=== PATIENT | male | born 1975 | race Two or more races ===

== ENCOUNTER 2018-02-01 09:09 | Emergency (ER) | payer SELFPAY ==
[~2018-02-01] VITALS: Ht 175.3 cm; Wt 127.0 kg
[2018-02-01 09:13] VITALS: BP 154/106
[2018-02-01] MEDS ORDERED: ALPRAZolam 0.5 MG TAB PO ONE (10:00)
[2018-02-01 10:56] LABS: Amphetamine Screen, Urine POSITIVE (NEGATIVE); Barbiturate Scree,Urine NEGATIVE (NEGATIVE); Benzodiazephine Screen, Urine NEGATIVE (NEGATIVE); Cannabinoid Screen, Urine NEGATIVE (NEGATIVE); Cocaine Screen, Urine NEGATIVE (NEGATIVE); Opiate Scree,Urine NEGATIVE (NEGATIVE); Phencyclidine Screen, Urine NEGATIVE (NEGATIVE)
== END 2018-02-01 10:08 | disposition home or self-care (01) ==
LOC: EDBD 09:09 → ER 09:09
DX: F41.9 Anxiety disorder, unspecified (principal); F32.9 Major depressive disorder, single episode, unspecified; I25.2 Old myocardial infarction
CPT/HCPCS: 80307

== ENCOUNTER 2018-06-04 03:37 | Emergency (ER) | payer BC, MEDICAID ==
[~2018-06-04] VITALS: Ht 175.3 cm; Wt 120.2 kg
[2018-06-04] MEDS ORDERED: LORazepam 0.5 MG TAB PO ONE (06:00)
[2018-06-04] MEDS ORDERED: HYDROcodone-ACET 7.5/325MG TAB PO ONE (06:45)
[2018-06-04 15:46] LABS: Amphetamine Screen, Urine POSITIVE (NEGATIVE); Barbiturate Scree,Urine NEGATIVE (NEGATIVE); Cannabinoid Screen, Urine NEGATIVE (NEGATIVE); Cocaine Screen, Urine NEGATIVE (NEGATIVE); Opiate Scree,Urine NEGATIVE (NEGATIVE); Phencyclidine Screen, Urine NEGATIVE (NEGATIVE)
[2018-06-04 16:17] LABS: Benzodiazephine Screen, Urine POSITIVE (NEGATIVE)
[2018-06-04 19:47] LABS: Basophils # (auto) 0.1 uL; Basophils % (auto) 0.5 % (0.0-2.0); Eosinophils # (auto) 0.1 uL; Eosinophils % (auto) 1.2 % (0.0-7.0); Hematocrit 39.2 % (41.0-53.0); Hemoglobin 13.6 g/dL (13.5-17.5); Lymphocytes # (auto) 2.5 uL; Lymphocytes % (auto) 23.3 % (10.0-50.0); Mean Corpuscular Hgb Conc. 34.6 g/dL (32.0-36.0); Mean Corpuscular Volume 89.6 fL (80.0-100.0); Monocytes % (auto) 9.8 % (0.0-12.0); Neutrophils % (auto) 65.2 % (37.0-80.0); Platelet Count (auto) 341 10^3/uL (140-450); Red Blood Cells 4.37 10^6/uL (4.5-5.90); White Blood Cell 10.7 10^3/uL (4.4-10.8)
[2018-06-04 20:09] LABS: Albumin 3.3 g/dL (3.4-5.0); BUN/Creatinine Ratio 22.7; Bilirubin, Total 0.4 mg/dL (0.2-1.0); Calcium 8.1 mg/dL (8.5-10.1); Potassium 3.7 mmol/L (3.5-5.1); Total Protein 6.7 g/dL (6.4-8.2)
[2018-06-04 21:29] LABS: Acetaminophen < 2.0 ug/mL (10-30); Salicylate 2.6 mg/dL (2.8-20.0)
[2018-06-05 19:07] VITALS: BP 129/79
== END 2018-06-06 00:22 | disposition home or self-care (01) ==
LOC: ER 03:41
DX: F32.9 Major depressive disorder, single episode, unspecified (principal); F41.9 Anxiety disorder, unspecified; I25.2 Old myocardial infarction
CPT/HCPCS: 36415; 80053; 80307; 80320; 80329; 85025